=== PATIENT | male | born 1965 | race Caucasian/White ===

== ENCOUNTER → 2018-04-09 | Day surgery (SDC) | payer OTHER ==
[2018-03-04 13:02] VITALS: BMI 29.7
[~2018-04-09] MED LIST: LACTATED RINGERS 1,000 ML IV ONE; LACTATED RINGERS 1,000 ML IV SCH; LIDOCAINE 1% 20 ML VIAL (10MG/ML) FOR IV START INTRADERMA ONE; PROPOFOL 10 MG/ML 20 ML VIAL IV ONE
[2018-04-09 12:14] VITALS: TEMP 98.2
--- NOTE | 2018-04-09 13:56 | P.PCN ---
Date of Procedure: 04/09/18 Procedure(s) Performed: BRIEF HISTORY: Patient is a 52-year-old pleasant male, scheduled for an elective colonoscopy as a part of screening for colon neoplasia. PROCEDURE PERFORMED: Colonoscopy. PREOPERATIVE DIAGNOSIS: Screening for colon cancer. IV sedation per Anesthesia. PROCEDURE: After informed consent was obtained, the patient, was brought into the endoscopy unit. IV sedation was administered by Anesthesia under continuous monitoring. Digital rectal examination was normal. Initially the Olympus CF- 160 flexible video colonoscope was then inserted in the rectum, gradually advanced into the cecum without any difficulty. Careful examination was performed as the scope was gradually being withdrawn. Ileocecal valve and the appendiceal orifice were visualized and appeared normal. Prep was fair. Mucosa of the cecum, ascending colon, transverse colon, descending colon, sigmoid colon , and rectum appeared normal. Scattered sigmoid diverticulosis seen. Retroflexion was performed in the rectum and no lesions were seen. The patient tolerated the procedure well. IMPRESSION: Normal-appearing colon from rectum to cecum with no evidence of colorectal neoplasia. Scattered sigmoid diverticulosis. RECOMMENDATIONS: Findings of this examination were discussed with the patient as well as his family. He was advised to have a repeat screening colonoscopy in 10 years.
[2018-04-09 13:59] VITALS: BP 105/67; PULSE 71; RESP 18
== END ==
LOC: ORWHC2ENDO 11:06
PROVIDERS: ATTEND Internal Medicine Gastroenterology
DX: Z12.11 Encounter for screening for malignant neoplasm of colon (principal); K57.30 Diverticulosis of large intestine without perforation or abscess without bleeding; J45.909 Unspecified asthma, uncomplicated; Z87.891 Personal history of nicotine dependence; Z79.1 Long term (current) use of non-steroidal anti-inflammatories (NSAID); Z79.51 Long term (current) use of inhaled steroids; Z79.899 Other long term (current) drug therapy
CPT/HCPCS: J2704; G0121

== ENCOUNTER → 2023-01-20 | Outpatient (CLI) | payer BC ==
[2023-01-20 22:59] LABS: Alternaria alternata IgE <0.10 kU/L; Aspergillus fumagatus IgE <0.10 kU/L; Cat Epith & Dander IgE >100.00 kU/L; Cladosporian herbarum IgE <0.10 kU/L; Cockroach IgE <0.10 kU/L; Dog Dander IgE 1.72 kU/L; Elm IgE <0.10 kU/L; Maple (Box Elder) IgE 0.24 kU/L; Oak IgE <0.10 kU/L
== END | disposition home or self-care (01) ==
LOC: LABWHC1 09:53
PROVIDERS: ATTEND Internal Medicine Critical Care Medicine
DX: J45.40 Moderate persistent asthma, uncomplicated (principal)
CPT/HCPCS: 36415; 82785; 85008; 86003

== ENCOUNTER → 2023-01-23 | Outpatient (CLI) | payer BC ==
--- NOTE | 2023-01-23 12:33 | CT ---
EXAMINATION TYPE: High-resolution CT chest DATE OF EXAM: 01/23/2023 COMPARISON: Radiograph 01/20/2023 HISTORY: 57-year-old male J44.9 COPD TECHNIQUE: Thin cut high resolution CT chest without contrast utilizing 1 mm slice thickness and 1 cm gap or HRCT protocol. Inspiratory and expiratory phase imaging as well [facility] DLP: 1831mGycm. Automatic exposure control utilized for a dose reduction. FINDINGS: The heart is normal size without pericardial effusion. Aorta normal caliber with conventional arch was a branching anatomy. Scattered nonenlarged mediastinal lymph nodes. No thoracic lymphadenopathy by CT size criteria. Patchy right middle lobe opacity and lesser extent inferior lingular opacity persists on prone imagin g. Mild generalized emphysematous change. Minimal left apical pleural parenchymal scarring. Additional strandy areas of scarring and atelectasis mid and lower lungs. No dominant groundglass, subpleural reticulations, or honeycombing is seen. No dominant findings of b ronchiectasis. No thickening of the bronchovascular bundles or perilymphatic nodularity. HRCT techniq ue limited for assessment of small pulmonary nodules. Visualized upper abdomen shows some endplate spondylosis at the thoracolumbar junction. IMPRESSION: 1. Mild emphysematous change. 2. Patchy right middle lobe opacity and to a lesser extent inferior lingula persist on prone imaging. Either some scarring or mild patchy infiltrates are in the differential. 3. No specific HRCT findings of NSIP or UIP.
== END | disposition home or self-care (01) ==
LOC: RADCTMAIN 09:32
PROVIDERS: ATTEND Internal Medicine Critical Care Medicine
DX: J43.9 Emphysema, unspecified (principal); R91.8 Other nonspecific abnormal finding of lung field
CPT/HCPCS: 71250

== ENCOUNTER → 2024-08-20 | Outpatient (CLI) | payer BC ==
[2024-08-20 12:48] LABS: HCT 49.6 % (39.6-50.0); HGB 16.4 g/dL (13.0-17.0); MCHC 33.1 g/dL (32.0-37.0); MCV 96.7 FL (80.0-97.0); Mean Platelet Volume 9.1 FL (9.5-12.2); NRBC Per 100 WBC 0 X 10*3/uL (0.00-0.01); Platelet Count 351 X 10*3/uL (140-440); RBC 5.13 X 10*6/uL (4.40-5.60); RDW 12.3 % (11.5-14.5)
[2024-08-20 15:02] LABS: Blood Urea Nitrogen 16.6 mg/dL (9.0-27.0); Carbon Dioxide 26.6 mmol/L (21.6-31.8); Chloride 102 mmol/L (96-109); Potassium 4.7 mmol/L (3.5-5.5); Sodium 139 mmol/L (135-145)
== END | disposition home or self-care (01) ==
LOC: LABPAT 08:33
PROVIDERS: ATTEND Internal Medicine Clinical Cardiac Electrophysiology
DX: Z01.812 Encounter for preprocedural laboratory examination (principal); I47.10 Supraventricular tachycardia, unspecified
CPT/HCPCS: 80051; 82565; 84520; 85027

== ENCOUNTER 2024-08-25 10:22 | Day surgery (SDC) | payer BC ==
[2024-08-25] MEDS: IV FLUID CONTINUATION 1,000 ML IV ONE (11:11)
[2024-08-25] MEDS: SODIUM CHLORIDE 0.9% 1,000 ML IV SCH (11:29)
[2024-08-25 13:09] LABS: ALT 21 U/L (4-49); AST 23 U/L (17-59); African American GFR (CKD) >90 (>60 ml/min/1.73 sqM); Albumin 3.9 g/dL (3.5-5.0); Alkaline Phosphatase 48 U/L (38-126); Anion Gap 8 mmol/L; Blood Urea Nitrogen 21 mg/dL (9-20); Carbon Dioxide 25 mmol/L (22-30); Chloride 104 mmol/L (98-107); Glucose 92 mg/dL (74-99); Non-African American GFR(CKD) >90 (>60 ml/min/1.73 sqM); Potassium 4.1 mmol/L (3.5-5.1); Sodium 137 mmol/L (137-145); Total Bilirubin 0.9 mg/dL (0.2-1.3); Total Protein 6.4 g/dL (6.3-8.2)
[2024-08-25] MEDS ORDERED: HYDROmorphone (PF) 1 MG/ML ONE (13:18)
[2024-08-25] MEDS ORDERED: MIDAZOLAM 2 MG/2 ML VIAL ONE (13:18)
[2024-08-25] MEDS ORDERED: PROPOFOL 10 MG/ML 20 ML VIAL IV ONE (13:18)
[2024-08-25] MEDS ORDERED: fentaNYL (PF) 50 MCG/ML 2 ML AMP ONE (13:18)
--- NOTE | 2024-08-25 13:35 | P.EPPROC ---
- EP Procedure Note Electrophysiology Procedure Note: This is Dr. Norton dictating an H/P on this patient The patient was interviewed and examined IMPRESSION / ASSESSMENT: SVT, short RP with negative [place] P waves in the inferior leads and past history of smoking PLAN: Diagnostic EP study possible radiofrequency ablation discontinue digoxin and metoprolol thereafter HPI Patient has a history of palpitations, recurrent He gets very dizzy and lightheaded with these episodes Twelve-lead EKG showed multiple episodes of SVT short RP tachycardia with negative reoriented P waves in the inferior leads Denies any fever chills cough chest discomfort or syncope recently in the last 1 to 2 weeks Has held his beta-blockers the last 3 days ROS: No fever chills or rigors, no cough, phlegm or expectoration, no nausea, vomiting or diarrhea, no hematuria, dysuria, no musculoskeletal complaints, no strokes or seizures, no skin lesions. EXAMINATION: 141/79 mmHg pulse rate is 60 beats minute afebrile Breath sounds are clear no rhonchi no crackles Heart sounds are normal no murmurs or gallop rub Clear lungs no rhonchi no crackles REVIEW OF LABS, ECG & MEDICAL DATA Sodium and potassium are both normal 137 and 4.1 Creatinine is normal 0.9 Liver function normal
[2024-08-25] MEDS: LIDOCAINE 1% INJ 10MG/ML (20 ML MDV) SQ ONE (14:02)
[2024-08-25] MEDS: ROPIVACAINE 5 MG/ML 30 ML VIAL MISCELLANE ONE (14:02)
[2024-08-25] MEDS: HEPARIN SODIUM (1,000 UNIT/ML) 1,000 UNIT in SODIUM CHLORIDE 0.9% 1,000 ML IRRIGATION ONE (15:38)
[2024-08-25] MEDS ORDERED: ACETAMINOPHEN TAB 325 MG TAB PO PRN (16:02)
--- NOTE | 2024-08-25 16:11 | P.EPPROC ---
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 Written informed consent was obtained prior to the procedure. Venous sheaths were placed in the right left femoral veins and via these for diagnostic catheters placed in the right heart. Later a long sheath, 120 L as well as a mapping and ablation catheter placed in the right heart Sinus cycle length 976 ms, IL interval 176, QRS 93 ms and QT 425 ms Baseline AH 91 and HV 41 ms Para-Hisian pacing revealed a keyana response AV node Wenckebach block 440 ms, subtle evidence of antegrade slow pathway conduction VA Wenckebach block 490 ms Sinus node recovery times were 1308, 1323 and 1021 ms. Normal corrected sinus node recovery times Burst stimulation was performed from the high right atrium. Extra stimulation from the coronary sinus ventricular extrastimulation induced SVT on Isopril at 400/230 ms The onset of the SVT: Retrograde slow pathway conduction followed by antegrade slow pathway conduction followed by induction of typical AV keyana reentry VAV response to ventricular pacing maneuver Short septal time of 61 ms or less Long sheath placed. Slow pathway was mapped. His bundle was tagged. Coronary sinus was mapped RF application of the septum resulted in induction of junctional rhythm. A little lateral to this point, once again junctional rhythm was obtained. Several of the lesions were given in this region Thereafter SVT could not be induced both on and off Isopril Final IL interval is normal Following ablation on Isopril with ventricular stimulation ventricular straight pacing CS pacing and atrial extrastimulation from the high right atrium could not induce any SVT Result successful ablation for AV keyana reentry Plan stop beta-blockers and digoxin
--- NOTE | 2024-08-25 16:13 | P.PRLE ---
RE: Sukhdev Morocho Dear Jamshid Santizo underwent a diagnostic EP study which revealed AV keyana reentry He underwent successful ablation for this The tachycardia was rendered noninducible No other arrhythmias were induced I am stopping beta-blockers as well as digoxin at this time Thank you for entrusting me with the care of the patient Warm regards Sincerely Iván Norton
[2024-08-25] MEDS: ACETAMINOPHEN IV (For NPO) 1,000 MG in EMPTY BAG 1 BAG IVPB ONE (16:39)
[2024-08-25] MEDS: LACTATED RINGERS 1,000 ML IV SCH (17:01)
[2024-08-25] MEDS: SYMBICORT 160-4.5 MCG INHALER INHALATION SCH (19:17)
[2024-08-26 02:04] VITALS: TEMP 97.8
[2024-08-26] MEDS: TIOTROPIUM 2.5 MCG INHALER INHALATION SCH (06:16)
[2024-08-26 07:56] VITALS: BP 100/63; PULSE 64; RESP 16
[2024-08-26 09:21] VITALS: BMI 27.0
--- NOTE | 2024-08-26 10:45 | P.DS ---
Providers Attending physician: Iván Norton Primary care physician: [facility] Course: Doing well. No chest discomfort dizziness lightheadedness or palpitations On examination heart sounds are normal and regular Breath sounds are clear No pleuritic chest pain Groins have healed well no hematoma Impression recurrent SVT AV keyana reentry induced at EP study Status post successful ablation Tachycardia rendered noninducible Plan Stop metoprolol and digoxin Follow-up with Dr. Norton in a week Discharge home today Plan - Discharge Summary Discharge Rx Participant: No New Discharge Prescriptions: No Action Naproxen Sodium [Aleve] 220 mg PO BID PRN PRN Reason: Pain Albuterol Nebulized [Ventolin Nebulized] 2.5 mg INHALATION Q4-6H PRN PRN Reason: Shortness Of Breath Albuterol Inhaler [Ventolin Hfa Inhaler] 1 - 2 puff INHALATION Q6HR PRN PRN Reason: Shortness Of Breath Guaifenesin/Dextromethorphan [Mucinex Dm ER 1,200-60 mg Tab] 1 each PO BID PRN PRN Reason: ALLERGY SX Metoprolol Succinate (ER) [Toprol Xl] 12.5 mg PO QAM Digoxin [Lanoxin] 125 mcg PO QAM Fluticasone/Umeclidin/Vilanter [Trelegy Ellipta 200-62.5-25] 1 puff INHALATION QAM Discharge Medication List Albuterol Inhaler [Ventolin Hfa Inhaler] 1 - 2 puff INHALATION Q6HR PRN 03/04/18 [History] Albuterol Nebulized [Ventolin Nebulized] 2.5 mg INHALATION Q4-6H PRN 03/04/18 [History] Guaifenesin/Dextromethorphan [Mucinex Dm ER 1,200-60 mg Tab] 1 each PO BID PRN 03/04/18 [History] Naproxen Sodium [Aleve] 220 mg PO BID PRN 03/04/18 [History] Digoxin [Lanoxin] 125 mcg PO QAM 08/24/24 [History] Fluticasone/Umeclidin/Vilanter [Trelegy Ellipta 200-62.5-25] 1 puff INHALATION QAM 08/24/24 [History] Metoprolol Succinate (ER) [Toprol Xl] 12.5 mg PO QAM 08/24/24 [History]
== END 2024-08-26 12:42 | disposition home or self-care (01) ==
LOC: CATHEP 10:22 → 6NMEDSUR 15:40 → CATHEP 08-26 12:42
PROVIDERS: ATTEND Internal Medicine Clinical Cardiac Electrophysiology
DX: I47.19 Other supraventricular tachycardia (principal); I44.1 Atrioventricular block, second degree; J44.89 Other specified chronic obstructive pulmonary disease; Z91.018 Allergy to other foods; Z87.891 Personal history of nicotine dependence; Z79.51 Long term (current) use of inhaled steroids; Z79.899 Other long term (current) drug therapy
CPT/HCPCS: 94640; 93005; 93623; 93653; 86900; 86901; 80053; 84443; 86850; C1894; C1769; C1760 ×2; C1730 ×3; C1893; C1732; J2250; J2003; J3010; J1644; J1171; J2795; J0131; J2704